=== PATIENT | female | born 1950 | race Caucasian/White ===

== ENCOUNTER → 2020-07-13 15:19 | Outpatient (CLI) | payer MEDICARE, SELFPAY ==
--- NOTE | ~2020-07-13 | XR_ITS ---
EXAMINATION: XR lumbar spine 2-3V DATE: 07/13/2020 16:20 INDICATION: Leg pain TECHNIQUE: Anteroposterior and lateral views of the lumbar spine, and cone-down lateral view of the l umbosacral junction were obtained. COMPARISON: None. FINDINGS: There is an age-indeterminate compression fracture of L1 with one third loss of anterior ve rtebral body height. The remaining lumbar vertebral body heights are maintained. Alignment is normal. There is mild loss of intervertebral disc space height throughout the lumbar spine. Small degenerati ve osteophytes project from the anterior endplates of multiple vertebral bodies. Moderate to severe f acet osteoarthritis is noted in the lower lumbar spine. The bowel gas pattern is normal. IMPRESSION: 1. Age-indeterminate L1 compression fracture with one third loss of anterior vertebral body height. Reviewed, dictated and finalized at location A. DENT PROGRAMS ASSISTANT IMPRESSION: 1. Age-indeterminate L1 compression fracture with one third loss of anterior ve rtebral body height.
--- NOTE | ~2020-07-13 | XR_ITS ---
EXAMINATION: XR sacrum coccyx min 2V INDICATION: Low back pain TECHNIQUE: Three views of the sacrum and coccyx are obtained. COMPARISON: None available FINDINGS: Bone alignment is normal. There is no fracture. Phleboliths are noted in the pelvis. There is mild osteoarthritis of the hips. Mild to moderate lower lumbar spondylosis is noted. IMPRESSION: 1. No acute osseous abnormality. Reviewed, dictated and finalized at location A. LE END TENON OPERATOR
--- NOTE | ~2020-07-13 | XR_ITS ---
EXAMINATION: XR thoracic spine 2V DATE: 07/13/2020 16:18 INDICATION: Back pain TECHNIQUE: AP, lateral and lateral swimmer's views of the thoracic spine were obtained. COMPARISON: None. FINDINGS: There is an age-indeterminate compression fracture of the L1 vertebral body. Mild anterior wedging of T12 appears to be physiologic. There is mild loss of intervertebral disc space height thro ughout the thoracic spine. Bone alignment is normal. Small degenerative osteophytes project from the anterior endplates of multiple vertebral bodies. Calcified atherosclerosis is noted. IMPRESSION: 1. Mild thoracic spondylosis. 2. Age indeterminate L1 compression fracture. Reviewed, dictated and finalized at location A. GERIE CARETAKER
== END ==
DX: M54.5 Low back pain (principal); M48.56XA Collapsed vertebra, not elsewhere classified, lumbar region, initial encounter for fracture; M47.814 Spondylosis without myelopathy or radiculopathy, thoracic region
CPT/HCPCS: 72070; 72100; 72220

== ENCOUNTER → 2020-10-17 11:03 | Outpatient (CLI) | payer MEDICARE, SELFPAY ==
--- NOTE | ~2020-10-17 | DEXA_ITS ---
Bone Density Report Name: Mary Liu Age: 70 Sex: Female Ethnicity: White Date of : 1950 Indication: postmenopausal; screening for osteoporosis; parental hip fracture; height loss; prior fracture; Referring Provider: Noe, Víctor Izquierdo Study: Bone densitometry was performed. Exam Date: October 17, 2020 Accession number: [id number] Bone Density: Region BMD T-score Z-score Classification AP Spine (L1-L4) 1.033 -0.1 2.0 Normal Femoral Neck (Left) 0.571 -2.5 -0.7 Osteoporosis Total Hip (Left) 0.739 -1.7 -0.1 Osteopenia Femoral Neck (Right) 0.592 -2.3 -0.5 Osteopenia Total Hip (Right) 0.730 -1.7 -0.2 Osteopenia Total Hip Mean 0.735 -1.7 -0.2 Osteopenia World Health Organization criteria for BMD impression classify patients as: Normal (T-score at or above -1.0), Osteopenia (T-score between -1.0 and -2.5), or Osteoporosis (T-score at or below -2.5). 10-year Fracture Risk: FRAX not reported because: Some T-score for Spine Total or Hip Total or Femoral Neck at or below -2.5 Clinical Information Provided by Patient: Has had a low trauma fracture Parent has had a hip fracture Has used the following medications: Vitamin D, LEVOTHYROXINE Patient maximum height was 64.0 Menopause Age: 51 No regular weight bearing exercise Drinks caffeinated beverages Onset of menses at age 11 Number of children 2 Impression: The patient has established osteoporosis, based on the Left Femoral Neck T-score and the existence of a prior fracture. The patient has risk factors, including: parental hip fracture, previous fracture. Discussion: HIGH RISK OF FRACTURE. BONE DENSITY IS UNDESIRABLY LOW AT ONE OR MORE SKELETAL SITES, CONSISTENT WITH POSTMENOPAUSAL OSTEOPOROSIS. This patient's lowest T-score, in a patient who has previously fractured, meets the World Health Organization's (WHO) criteria for severe osteoporosis. In untreated patients, the risk of osteoporotic fracture increases approximately two-fold for each 1.0 SD decrease in T-score. Low bone density is not the only risk factor for fracture; also consider factors such as patient's age, frailty or poor health, risk of falling, risk of injury, previous osteoporotic fracture, family history of osteoporosis, cigarette smoking, low body weight, etc. Not everyone with low bone mineral density has osteoporosis; osteomalacia and other metabolic bone disorders should also be considered. Patients who have osteoporosis should be evaluated for specific diseases and conditions (secondary causes) that may cause or contribute to bone loss. The [place] Association [employer] Clinical Endocrinologists (AACE) and National Osteoporosis Foundation (NOF) recommend pharmacologic intervention for all postmenopausal women whose T-score is in this range. The patient should follow a healthful lifestyle (good nutr
--- NOTE | ~2020-10-17 | MM_ITS ---
EXAMINATION: MM screening saulo BI w oma HISTORY: Screening mammogram TECHNIQUE: Craniocaudal and mediolateral oblique 3-D tomosynthesis images were obtained and synthetic 2-D images were generated. CAD analysis was submitted and interpreted. COMPARISON: 03/27/2017, 11/20/2012, 02/19/2011 bilateral digital screening mammogram examinations BREAST PARENCHYMAL COMPOSITION: The breasts are heterogeneously dense, which may obscure small masses . FINDINGS: Stable fibroglandular asymmetry. Minimal benign calcification. There is no evidence of susp icious mass, calcification, or architectural distortion to suggest malignancy in either breast. There has been no suspicious interval change. IMPRESSION: 1. No mammographic evidence of malignancy. 2. Recommend routine screening mammography in one year. BI-RADS Category 2: Benign finding(s). Reviewed, dictated and finalized at location A.
== END ==
PROVIDERS: PCP Family Medicine; Visit Provider Family Medicine
DX: Z12.31 Encounter for screening mammogram for malignant neoplasm of breast (principal); M81.0 Age-related osteoporosis without current pathological fracture; M85.852 Other specified disorders of bone density and structure, left thigh; M85.851 Other specified disorders of bone density and structure, right thigh
CPT/HCPCS: 77063; 77067; 77080

== ENCOUNTER → 2021-03-16 10:37 | Outpatient (CLI) | payer MEDICARE, SELFPAY ==
--- NOTE | ~2021-03-16 | XR_ITS ---
EXAMINATION: XR chest 2V 03/16/2021 11:02 INDICATION: Essential hypertension. Nicotine dependence. PROCEDURE: 2 view chest COMPARISON: No prior studies for comparison. FINDINGS: The lungs are clear. The lungs are hyperinflated which is consistent with, but not diagnost ic of chronic obstructive pulmonary disease. The cardiomediastinal silhouette is within normal limits . There are no pleural effusions. There is no pneumothorax suspected. IMPRESSION: 1: NO ACUTE CARDIOPULMONARY DISEASE. Reviewed, dictated and finalized at location A.
== END ==
PROVIDERS: PCP Family Medicine; Visit Provider Family Medicine
DX: F17.210 Nicotine dependence, cigarettes, uncomplicated (principal); I10 Essential (primary) hypertension
CPT/HCPCS: 71046

== ENCOUNTER → 2022-12-18 11:44 | Outpatient (CLI) | payer MEDICARE, SELFPAY ==
--- NOTE | ~2022-12-18 | CT_ITS ---
CT head without contrast Indication: Dizziness Technique: Serial scans were obtained through the brain without the administration of contrast. Dose reduction technique was used on this scan by utilizing automated exposure control and iterative recon struction technique. The dose-length product (DLP) was 599.57 mGy-cm. Findings: There is no evidence of intracranial hemorrhage, mass lesion, or acute infarct. The ventri cles and subarachnoid spaces are dilated, consistent with mild atrophy. Low attenuation regions are seen within the periventricular white matter bilaterally, likely representing changes from chronic mi crovascular ischemic disease. There is no evidence of edema, mass effect or midline shift. The visu alized paranasal sinuses and mastoid air cells are clear. Impression: No intracranial hemorrhage, mass, or acute infarct. Atrophy and chronic white matter changes, as above. Reviewed, dictated and finalized at location . Impression: No intracranial hemorrhage, mass, or acute infarct. Atrophy and chronic white matter changes, as above.
== END ==
PROVIDERS: PCP Family Medicine; Visit Provider Family Medicine
DX: R42 Dizziness and giddiness (principal); R93.0 Abnormal findings on diagnostic imaging of skull and head, not elsewhere classified
CPT/HCPCS: 70450

== ENCOUNTER 2024-09-09 14:53 | Emergency (ER) | payer MEDICARE, SELFPAY ==
--- NOTE | ~2024-09-09 | XR_ITS ---
HISTORY: fall COMPARISON: 07/13/2020 TECHNIQUE: 2 views of the sacrum and coccyx were performed FINDINGS: A 9.7mm triangular-shaped osseous density is identified caudal to the right sacroiliac joint, which m ay represent a bony fragment from prior evulsion fracture as it is also seen on the 07/13/2020 examina tion. Diffuse bony demineralization is present. Moderate lower lumbar spondylosis is present. No acute or subacute fracture. Remaining soft tissues are otherwise unremarkable without radiopaque foreign body or significant calc ification. IMPRESSION: Stable radiographic evaluation of the sacrum and coccyx, as detailed above. Reviewed, dictated and finalized at location A. IMPRESSION: Stable radiographic evaluation of the sacrum and coccyx, as detail ed above.
[2024-09-09 14:56] VITALS: BP 153/94; PULSE 78; RESP 20; TEMP 36.6; O2SAT 100
--- NOTE | 2024-09-09 15:27 | ED_ITS ---
HPI - Fall General Chief Complaint: Fall Stated Complaint: FALL Time Seen by Provider: 09/09/24 14:56 Source: patient, RN notes reviewed and old records reviewed Mode of arrival: ambulatory Limitations: no limitations History of Present Illness HPI Narrative: Patient presents with complaints of same level fall 4 weeks ago. She reports that she became tangled in her dog's leash, fell and landed on her buttocks. She is here because she has had continuing tailbone pain ever since the incident 4 weeks ago. She denies any numbness or tingling. She is observed ambulating with the assistance of a walker, which she says is typical for her. She is not in any obvious distress Related Data Home Medications ?Medication ?Instructions ?Recorded ?Confirmed ?Last Taken ?Type clonazepam 0.5 mg tablet mg 09/09/24 Unknown History levothyroxine 75 mcg tablet mcg 09/09/24 Unknown History lisinopril 20 tablet 09/09/24 Unknown History mg-hydrochlorothiazide 25 mg tablet trazodone 100 mg tablet mg 09/09/24 Unknown History venlafaxine 150 mg mg PO 09/09/24 Unknown History capsule,extended release 24 hr Allergies Allergy/AdvReac Type Severity Reaction Status Date / Time No Known Allergies Allergy Verified 09/09/24 14:56 Review of Systems 2 Review of Systems: All systems reviewed & are unremarkable except as noted in HPI and below Constitutional: Constitutional: Reports no additional constitutional complaints ENT: Reports system reviewed and no additional complaints, except as documented Cardiovascular: Cardiovascular: Reports no additional cardiovascular complaints Respiratory: Respiratory: Reports no additional respiratory complaints Gastrointestinal: Gastrointestinal: Reports no additional gastrointestinal complaints Musculoskeletal: Musculoskeletal: Reports no additional musculoskeletal complaints, Reports as per HPI, Reports back pain and Reports stiffness PMFSH Comments At the time of my signature, I reviewed and agree with the nursing past medical, surgical, social, and family history. There is no relevant family history pertinent to the patient complaint. Exam 2 Const: General: cooperative, no acute distress, alert and awake O rientation/consciousness: oriented to person, oriented to place and oriented to time HENMT: Head: normal to inspection Mouth: Yes moist mucous membranes Resp: Effort & Inspection: normal respiratory effort and able to speak in complete sentences Auscultation: clear to auscultation bilaterally, no crackles, no rales, no rhonchi and no wheezes Cardio: Palpation: normal PMI Rate: regular rate Rhythm: regular rhythm Heart sounds: S1 normal heart sound present and S2 normal heart sound present Skin: Full body images: 1. tenderness Neuro: General: oriented to person, oriented to place and oriented to time Cranial nerves: Yes CN's II-XII intact bilaterally Psych: Appearance: grossly normal Thought process: Normal thought process present Insight: Good insight present (Psych) Judgement: Good judgement present (Psych) Course Course Level of Care: Express Care Visit Vital Signs Vital signs: Vital Signs Temperature 97.9 F 09/09/24 14:56 Pulse Rate 78 09/09/24 14:56 Respiratory Rate 20 09/09/24 14:56 Blood Pressure 153/94 H 09/09/24 14:56 Pulse Oximetry 100 09/09/24 14:56 Oxygen Delivery Room Air 09/09/24 14:56 Temperature 97.9 F 09/09/24 14:56 Pulse Rate 78 09/09/24 14:56 Respiratory Rate 20 09/09/24 14:56 Blood Pressure 153/94 H 09/09/24 14:56 Pulse Oximetry 100 09/09/24 14:56 Oxygen Delivery Room Air 09/09/24 14:56 Reviewed MDM - Fall MDM Narrative Medical decision making narrative: Patient is using her walker, she is encouraged to continue doing so. No fracture on x-ray. She did have some stool, reports that she has problems with constipation. She is encouraged she use pymi-oaq-gbukczo fiber supplement such as Metamucil or MiraLax. She agrees to do so. Follow-up with primary care provider. Emergency department new or worse symptoms. Discharge instructions reviewed with patient, as well as provided in writing per nursing staff. The instructions also include specific and strict return/GO TO THE ER as well as f/u information. All questions have been answered, and the patient deny any further questions with discharge and discharge plan. Some parts of this dictation were generated by voice recognition software and may contain typographical and/or grammatical inaccuracies. Differential Diagnosis Differential diagnosis: Likely compression fracture and other (coccyx fracture) Medical Records Attestation: I reviewed the patient's medical records. Imaging Data Attestation: I personally reviewed and interpreted this imaging study as follows: My impression: no acute findings Radiologist's impression: [facility] [address] [place] [address] XRay Report Signed Patient: Mary Liu : 1950 MR#: [id number] Age: 73 Acct:[id number] Loc: [facility] ADM Date: 09/09/24Attending Dr: Ordering Physician: Aparna Donovan FNP Date of Service: 09/09/24 Procedure(s): XR sacrum coccyx min 2V Accession Number(s): [id number] cc: Aparna Donovan FNP; Noe, Víctor Izquierdo MD~ HISTORY: fall COMPARISON: 07/13/2020 TECHNIQUE: 2 views of the sacrum and coccyx were performed FINDINGS: A 9.7mm triangular-shaped osseous density is identified caudal to the right sacroiliac joint, which may represent a bony fragment from prior evulsion fracture as it is also seen on the 07/13/2020 examination. Diffuse bony demineralization is present. Moderate lower lumbar spondylosis is present. No acute or subacute fracture. Remaining soft tissues are otherwise unremarkable without radiopaque foreign body or significant calcification. IMPRESSION: Stable radiographic evaluation of the sacrum and coccyx, as detailed above. Reviewed, dictated and finalized at location A. Please be advised this is a medical document. It is intended for sbhe-lb-ysxc communication. It is written in medical language and may contain unfamiliar abbreviations or verbiage. Medical documents are intended to carry relevant information, facts as evident, and the clinical opinion of the practitioner at the time of the encounter. This report may have been done utilizing a voice recognition system. Attempts have been made to correct errors. However, there may be uncorrected grammatical, spelling, and recognition errors present. The file time of this note does not necessarily represent the time of service. Dictated By: Randa Womack MD 09/09/24 1528 Signed By: <Electronically signed by Randa Womack MD in OV> Discharge Plan Discharge Clinical Impression: Coccyx pain Patient Disposition: Home, Self-Care Condition: Stable Instructions: Antibiotic Form, Musculoskeletal Pain (ED) Additional Instructions: Continue supportive care measures. Follow-up with primary care provider. Emergency department for new or worsened Patient Language: Ivorian Prescriptions: No Action clonazepam 0.5 mg tablet levothyroxine 75 mcg tablet trazodone 100 mg tablet lisinopril-hydrochlorothiazide 20-25 mg tablet venlafaxine 150 mg capsule,extended release 24hr PO Follow-up/Referrals: Noe,Víctor Izquierdo MD [Primary Care Provider] - 3 Days Time of Disposition: 15:49
== END 2024-09-09 15:55 | disposition home or self-care (01) ==
PROVIDERS: Emergency Provider Nurse Practitioner Family; PCP Family Medicine
DX: M53.3 Sacrococcygeal disorders, not elsewhere classified (principal); G30.9 Alzheimer's disease, unspecified; F02.80 Dementia in other diseases classified elsewhere, unspecified severity, without behavioral disturbance, psychotic disturbance, mood disturbance, and anxiety; I10 Essential (primary) hypertension; E89.0 Postprocedural hypothyroidism; N80.9 Endometriosis, unspecified; M41.9 Scoliosis, unspecified; Z86.73 Personal history of transient ischemic attack (TIA), and cerebral infarction without residual deficits
CPT/HCPCS: 72220; 99213; G0463

== ENCOUNTER 2025-06-06 11:59 | Emergency (ER) | payer MEDICARE, SELFPAY ==
--- NOTE | ~2025-06-06 | XR_ITS ---
EXAM/PROCEDURE: XR thoracic spine 3V HISTORY: fall back pain COMPARISON: 2020 thoracic spine x-rays TECHNIQUE: Thoracic spine x-rays FINDINGS: Approximately 60% anterior compression fracture of what appears to be L2 has occurred since the 2020 exam. Chronic 40% anterior compression fracture of L1 not clearly changed. 25% anterior wedge deformity or compression fracture of T12 is new. IMPRESSION: Multiple compression fractures with the most pronounced, 60% anterior compression fracture L2 new since the 2020 exam. Reviewed, dictated and finalized at location A. [employer] IMPRESSION: Multiple compression fractures with the most pronounced, 60% anterior compressi on fracture L2 new since the 2020 exam.
--- NOTE | ~2025-06-06 | XR_ITS ---
EXAM/PROCEDURE: XR lumbar spine 2-3V HISTORY: fall back pain COMPARISON: June 2020 TECHNIQUE: Lumbar spine x-rays FINDINGS: Approximately 60% anterior compression fracture of what appears to be L2 has occurred since the 2020 exam. Chronic 40% anterior compression fracture of L1 not clearly changed. 25% anterior wedge deformity or compression fracture of T12 is new. Moderately extensive atherosclerotic calcification in the aorta. The bones appear diffusely osteopenic and degenerative. IMPRESSION: Multiple compression fractures with the most pronounced, 60% anterior compression fracture L2 new since the 2020 exam. Reviewed, dictated and finalized at location A. NER IMPRESSION: Multiple compression fractures with the most pronounced, 60% anterior compressi on fracture L2 new since the 2020 exam.
[2025-06-06 12:18] VITALS: BP 126/63; PULSE 88; RESP 16; TEMP 36.7; O2SAT 99
--- NOTE | 2025-06-06 13:50 | ED.BACK ---
HPI - Back Pain/Injury General Chief Complaint: Back Pain/Injury Stated Complaint: FALL/BACK INJURY Time Seen by Provider: 06/06/25 13:30 Source: patient and RN notes reviewed Mode of arrival: ambulatory Limitations: no limitations History of Present Illness HPI Narrative: 74-year-old female presents Express Care with spouse complaining of multiple falls this week. Patient says she has fallen at least 4 times week. Patient reports having history of a stroke. Patient says she normally follows and she tries to bend and reach something, the last time she fell she was bending on the recent and fell backwards hurting her back. Patient has a history of compression fractures in her spine. Patient reporting worsening left mid/low back pain. Patient denies any her head, neck pain, loss of consciousness, dizziness, numbness, tingling, lightheadedness, nausea, vomiting, slurred speech, confusion, fevers, or any other symptoms. Patient denies taking any anticoagulants. Patient has not taken anything for pain to help. Related Data Home Medications ?Medication ?Instructions ?Recorded ?Confirmed ?Last Taken ?Type levothyroxine 75 mcg tablet mcg 09/09/24 Unknown History lisinopril 20 tablet 09/09/24 Unknown History mg-hydrochlorothiazide 25 mg tablet trazodone 100 mg tablet mg 09/09/24 Unknown History venlafaxine 150 mg mg PO 09/09/24 Unknown History capsule,extended release 24 hr aspirin 81 mg tablet 81 mg PO DAILY 06/06/25 Unknown History bupropion HCl 150 mg 24 hr tablet, mg PO 06/06/25 Unknown History extended release clonazepam 1 mg tablet mg 06/06/25 Unknown History meloxicam 15 mg tablet 15 mg PO DAILY 06/06/25 Unknown History Allergies Allergy/AdvReac Type Severity Reaction Status Date / Time No Known Allergies Allergy Verified 06/06/25 12:32 Review of Systems Review of Systems: CONSTITUTIONAL: Denies fever, chills, or sweats. Positive for multiple falls. EYES: Denies visual changes, redness, or discharge. ENT: Denies rhinorrhea, congestion, sore throat, or otalgia. CARDIOVASCULAR: Denies chest pain, palpitations, or edema. RESPIRATORY: Denies cough or dyspnea. GASTROINTESTINAL: Denies abdominal pain, nausea, vomiting, or diarrhea. GENITOURINARY: Denies dysuria or hematuria. SKIN: Denies rash or itching. MUSCULOSKELETAL: Positive for back pain. Negative for neck pain, Joint pain, or myalgia. NEUROLOGIC: Denies headache, loss of consciousness, slurred speech, confusion, numbness, or weakness. PSYCHIATRIC: Denies anxiety or depression. All other systems reviewed are negative, except as documented in HPI. PMFSH Comments At the time of my signature, I reviewed and agree with the nursing past medical, surgical, social, and family history. There is no relevant family history pertinent to the patient complaint. Exam Narrative: GENERAL: This is a well-nourished, well-developed adult, in no apparent distress. They are non ill-appearing, nontoxic appearing. HEAD: normocephalic, atraumatic. No raccoon eyes or Infante signs. EYES: Sclera clear/white. Conjunctiva normal. Vision is grossly intact. Extraocular movements intact EARS: External ears normal,. Hearing grossly intact. NOSE: External nose normal THROAT: Mucous membranes moist, NECK: Neck supple, non-tender without lymphadenopathy, masses or thyromegaly. CARDIOVASCULAR: Regular rate and rhythm without murmurs, gallops, or rubs. RESPIRATORY: Clear to auscultation. Breath sounds equal bilaterally. No wheezes, rales, or rhonchi. SKIN: warm, Dry, intact with no suspicious lesions or rash, good texture and turgor. NEURO: awake, alert, and oriented to person, place and time. There were no obvious focal neurologic abnormalities. EXTREMITIES: No joint tenderness, effusion, or edema noted. BACK: Nontender without deformity. No CVA tenderness. Thoracic and lumbar point tenderness. No crepitus or step-offs. No obvious bruising or deformity. Course Course Level of Care: Express Care Visit Vital Signs Vital signs: Vital Signs Temperature 98.1 F 06/06/25 12:18 Pulse Rate 88 06/06/25 12:18 Respiratory Rate 16 06/06/25 12:18 Blood Pressure 126/63 06/06/25 12:18 Pulse Oximetry 99 06/06/25 12:18 Oxygen Delivery Room Air 06/06/25 12:18 Temperature 98.1 F 06/06/25 12:18 Pulse Rate 88 06/06/25 12:18 Respiratory Rate 16 06/06/25 12:18 Blood Pressure 126/63 06/06/25 12:18 Pulse Oximetry 99 12/15/25 12:18 Oxygen Delivery Room Air 06/06/25 12:18 [facility] MDM Narrative Medical decision making narrative: X-ray of thoracic and lumbar spine reveals new compression fracture to T12 and L2. Old compression fractures noted, these new compression fractures appearing new compared to 2020 x-ray. Patient's spouse is the patient MRI of her spine 3 weeks ago at a different medical facility,, unable to view those images out of the hospital network unsure if these are new or old, spouse is MIP old however that is unclear. There is a concern the patient falling too much in 1 week. Given patient's symptoms, it is recommend the patient seek a higher level care and proceed immediately to the emergency department. Patient is refusing to go to the emergency department, stating she does not want to go. Informed patient as well pain management is limited to work given her condition and being fall prone, is not recommended to give her anything sedating the may increase her risk of falling. Patient would like to sign out against medical advice. Patient has chosen to refuse further care. Risks of an incomplete evaluation and treatment were discussed with the patient, including but not limited to potential for , worsening of condition, or permanent disability. Patient verbalized understandings of these risks, but still desires to refuse further care. Patient recommended to follow up with PCP in the next possible interval. Specifically, patient was told they can return to the ED at any time if she changes her mind. Discussed supportive care for her back and also follow-up with pain management that she already sees. Discussed physical exam findings. Advised supportive measures and signs/symptoms to go to the ER. Pt is appropriate for outpt treatment and f/u. Differential Diagnosis Differential Diagnosis: Compression fracture, spinal fracture, multiple falls, infection, spine injury, Imaging Data Radiologist's impression: ITS Impressions Thoracic Spine X-Ray 06/06/25 13:05 IMPRESSION: Multiple compression fractures with the most pronounced, 60% anterior compression fracture L2 new since the 2020 exam. Lumbar Spine X-Ray 06/06/25 13:07 IMPRESSION: Multiple compression fractures with the most pronounced, 60% anterior compression fracture L2 new since the 2020 exam. Critical Care Time Critical Care Time Critical Care Time: No Discharge Plan Discharge Clinical Impression: Multiple falls, Compression fracture Patient Disposition: Left Against Medical Advice Condition: Stable Additional Instructions: Your thoracic and lumbar spine x-ray reveals new compression fractures. Take meloxicam as needed for pain. May alternate with Tylenol. Follow instructions on the bottle. May apply lidocaine patches to the affected area, you may leave them on at least 12 hours at a time. You may apply ice and heat to the affected area, 15-20 minutes at a time a few times a day. You have Elected not to go to the ER today, you may return to the ER at any time if you change your my. Follow-up with your PCP in 3-5 days. If you developed worsening pain, weakness, confusion, fevers, any new falls, or any serious concerns please go to the ER immediately. Patient Language: Bahraini Prescriptions: No Action levothyroxine 75 mcg tablet trazodone 100 mg tablet lisinopril-hydrochlorothiazide 20-25 mg tablet venlafaxine 150 mg capsule,extended release 24hr PO clonazepam 1 mg tablet bupropion HCl 150 mg tablet extended release 24 hr PO aspirin 81 mg tablet 81 mg PO DAILY meloxicam 15 mg tablet 15 mg PO DAILY Follow-up/Referrals: Noe,Víctor Izquierdo MD [Primary Care Provider, Unknown] Time of Disposition: 13:37
== END 2025-06-06 13:51 | disposition left against medical advice (07) ==
PROVIDERS: PCP Family Medicine
DX: S32.029A Unspecified fracture of second lumbar vertebra, initial encounter for closed fracture (principal); W19.XXXA Unspecified fall, initial encounter; G30.9 Alzheimer's disease, unspecified; F02.80 Dementia in other diseases classified elsewhere, unspecified severity, without behavioral disturbance, psychotic disturbance, mood disturbance, and anxiety; Z86.73 Personal history of transient ischemic attack (TIA), and cerebral infarction without residual deficits; I10 Essential (primary) hypertension; M81.0 Age-related osteoporosis without current pathological fracture; M41.9 Scoliosis, unspecified; E89.0 Postprocedural hypothyroidism; N80.9 Endometriosis, unspecified; F41.9 Anxiety disorder, unspecified; Z79.82 Long term (current) use of aspirin
CPT/HCPCS: 72072; 72100; 99213; G0463